=== PATIENT | male | born 1980 | race Caucasian/White ===

== ENCOUNTER 2018-08-21 09:56 | Outpatient (RCR) | payer BC, SELFPAY ==
--- NOTE | 2018-08-24 09:45 | HP.OTEVAL ---
Patient's Visit Information YAZ ACE is a 37 year old M, referred to Occupational Therapy by Jason Mcgregor, with a diagnosis of right ulnar lesions. Date of Evaluation: 08/21/18 Occupational Therapist: Pamela Juarez, ADEBAYO/[place], CHT - Subjective Subjective: This 37 year old male was seen for initial OT eval with dx of lesion ulnar nerve right elbow srpain, and right articular cartlage disorder right elbow. pt did have PT at [facility] 5 visits pts symptoms did not change. 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 pt states symptoms did go from neck/shoulder down to his hand. pt states that happened possibly in may. pt would like to return to his PLOF and decrease symptoms of burning/tingling sensation. - ADLs Kitchen: Chop with knife, Peel fruits & vegetables Yard: Mow lawn, [place] Miscellaneous: Use hand tools, Use power tools, Use computer keyboard, Operate spray bottle - Pain right UE 4 Pain Intensity Range: 4, 8 - ROM Forearm: right WNL left WNL Wrist: right [address] UD [address] 25 wrist right 75/65 left 75/55 - Strength Classified Ad Taker: right 90# left 105# Lateral Pinch: right 14# left 19# Tripod Pinch: right 16# left 22# Strength Comments: pt demo with right in school suspension coordinator/pinch weakness - Special Tests Median Nerve Compression Test: positive Elbow Flexion Test - Cubital Tunnel: positive - Quick DASH-Disab of Arm,Shoulder& Hand Quick DASH Score: 46.6650 - Goals Goal:: PT will demo an increase in in school suspension coordinator strength by 20# to increase independent with basic occupations of daily living to return pt to PLOF by D/C. Pt will demo an increase in lateral and tripod pinch by 2# to increase pts independent with opening baggies, containers at PLOF by D/C. Goal:: pt will report no pain greater than 1/10 with use of right UE with daily occupations by d/c Goal:: pt will report a decrease in Radial/ulnar nerve irritations by 75% to increase pts ind. use of right UE for ADLs and IADLS - Rehabilitation General Assessment: pt demo with positive radial, ulnar irritaion with nerve gluide, right UE/in school suspension coordinator weakness limiting pts ind. with IADLS and ADls. pt continued to moven fingers and rub and grab at is forearm when asked about the movment pt states he felt irritation on dorsal forearm. pt would benefit from skilled OT services 2-3x week for 4 weeks to return pt to PLOF. Today pt was ed. on radial nerve gluide, TOS to assist in decreasing nerve symptoms. Rehabilitation Potential: Good - Anticipated Interventions Anticipated Interventions: A/AAROM/PROM, Triggerpoint Release, Modalities, Joint Protection/Energy Conservation, Ergonomic Education - Visit Plan Frequency: 2-3x /Week Duration: 4 Weeks TEXT: Thank you for the opportunity to evaluate your patient. For Medicare and Medicare HMO plans, please review the plan of care and approve it. It will need to be FAXED BACK to us at [phone] for Medicare purposes. Please let me know if there are questions or concerns regarding this plan of care. Physician Signature: Date:
--- NOTE | 2019-02-03 10:36 | HP.OT.NRP ---
HP - Discharge Summary - Patient Information YAZ ACE was seen in my office for initial evaluation on 08/21/18. The following Plan of Care was established for this patient: Initial Frequency: 2-3x /Week Initial Duration: 4 Weeks - Anticipated Interventions Anticipated Interventions: A/AAROM/PROM, Triggerpoint Release, Modalities, Joint Protection/Energy Conservation, Ergonomic Education This patient was last seen in our office 08/21/18. Pertinent comments regarding their Occupational therapy will appear below: Pt was seen for OT evla only. Pt did not return for follow up visit. pt d/c due to lack of attendance. At this point I will be discontinuing this patient from occupational therapy. I would be happy to see this patient again in the future if found appropriate by the physician. Thank you! Pamela Juarez, OTR/L, CHT
== END 2018-08-21 19:00 | disposition home or self-care (01) ==
LOC: OT 09:56
PROVIDERS: Family Provider Family Medicine; PCP Family Medicine; Referring Provider Orthopaedic Surgery Hand Surgery; Visit Provider Orthopaedic Surgery Hand Surgery
DX: G56.21 Lesion of ulnar nerve, right upper limb (principal); S53.491D Other sprain of right elbow, subsequent encounter; M24.121 Other articular cartilage disorders, right elbow; M50.10 Cervical disc disorder with radiculopathy, unspecified cervical region
CPT/HCPCS: 97110; 97166